=== PATIENT | female | born 1980 | race Hispanic/Latino ===

== ENCOUNTER 2016-08-10 20:13 | Emergency (ER) | payer MEDICAID ==
[~2016-08-10 20:13] MED LIST: PREN-100 PO
[2016-08-10 20:32] VITALS: BP 105/64; PULSE 75; RESP 20; O2SAT 99
--- NOTE | 2016-08-10 21:09 | ED.REPORT ---
HPI-URI / Cough / Cold Date of Service August 10, 2016 ED Provider: Dr. Krish Adan MD A 35 year old, female presents to the ED with flu-like symptoms that began 2 days ago. Associated symptoms include fever, chills, headache, sore throat and bilateral eye redness. Her symptoms have been persistent since onset. Patient is up to date on all of her vaccinations except the influenza vaccine. Nursing Notes Stated Complaint: POSS PINK EYE,FEVER,COLD Chief Complaint: FLU/Cold Symptoms Nursing Notes Reviewed: Yes Allergies: Coded Allergies: No Known Allergies (Verified , 05/08/14) Scheduled Vits #90/Iron Fum/FA ( Formula Tablet) 1 Each Tablet 1 EACH PO DAILY General Time Seen by MD: 21:09 Chief Complaint Fever Hx Obtained From: Patient Arrived By: Walk-in Onset Occurred: 2 days ago Symptom Duration: Since onset Location: : Pharynx Quality: Aching Severity: Current: Mild Severity: Maximum: Mild Associated with: Reports: Chills, Fever, Headache Pertinent Negative: Pt denies other symptoms Context: Immunization Status General: All up to date Recent Healthcare: No recent doctor visit, No recent hospitalization Past Medical History Past Medical History History of PPD positive, 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 Past Surgical History 2013 - LEEP done for CAMERON-3 with clear margins. Smoking History Unknown if Ever Smoker Social History Other Social History: Good social support, Local resident Ambulatory Status Independent Review of Systems Constitutional: Reports: Chills, Fever Eyes: Reports: Redness bilateral Ears / Nose / Throat: Reports: Sore throat Neurologic: Reports: Headache Complete sys rev & neg: except as marked. Physical Exam Initial Vital Signs Vital Signs (First) Date Time Temp Pulse Resp B/P Pulse Ox O2 Delivery O2 Flow Rate FiO2 08/10/16 20:32 36.4 75 20 105/64 99 Room Air Initial VS: Reviewed Neck: Supple, Non-tender, Full range of motion Cardiovascular: Regular rate & rhythm, Heart sounds normal, Intact distal pulses Extremities: Vascular intact, Neuro intact, No swelling, No tenderness Skin: Warm, Dry, No cyanosis Neurologic: Alert, Oriented, Nonfocal Psychiatric: Mood/affect normal, Behavior normal, Normal thought content General/Constitutional: Awake, Alert, No acute distress ENT: Atraumatic, Airway patent Left Ear / Mastoid: Positive: Tympanic membrane bulging, Tympanic membrane red ENT: Left TM Respiratory / Chest: Atraumatic, No respiratory distress Head / Eyes: Atraumatic, Normocephalic, PERRL Conjunctiva / Sclera: Positive: Injected left, Injected right Interpretation & Diagnostics Lab Results Interpretation Test 08/10/16 22:30 Hold Purple Top Tube Received (Received) Hold Blue Top Tube Received (Received) Hold Red Top Tube Received (Received) Hold [place] Top Tube Received (Received) Hold [place] Top Tube Received (Received) Point of Care Testing: Preg test pos - urine Antigen Antibody Test Interp Rapid influenza positive Re-Eval/Medical Decision Med Decision/Clinical Course Influenza swab is positive. She certainly has conjunctival injection so therefore topical erythromycin will be prescribed. Her left ear is infected. This may well be all related to the influenza however I think it is prudent to treat as this may be bacterial superinfection. Re-Evaluation/Progress : Time of Eval: 21:28 Patient Status: Condition improved Re-Evaluation/Progress Note: Patient is rechecked. She is informed of her results and diagnosis. All of the patient's questions are addressed. She understands and agrees with the intended treatment plan. Counseled Regarding: Diagnosis, Need for follow-up, When/why to return to ED Discharge & Departure Impression: Primary Impression: Influenza due to influenza A virus Additional Impressions: Conjunctivitis Conjunctivitis type: acute Acute conjunctivitis type: unspecified Laterality: bilateral Qualified Code: H10.33 - Unspecified acute conjunctivitis, bilateral Otitis Laterality: left Qualified Code: H66.92 - Otitis media, unspecified, left ear Disposition: Home Discharge Condition All VS Reviewed: Yes Condition: Improved Patient Instructions: Conjunctivitis (ED), Influenza (ED), Otitis Media (ED) Additional Instructions: Thank you for trusting us with your care this evening. Your emergency department results are indicative of pink eye, ear infections, and the flu. Take Augmentin twice daily for 10 days. Use Erythromycin ointment on the affected eye 4 times daily for 5 days. Take Tylenol as directed for pain. Avoid Aspirin containing products. Your symptoms should likely resolve within the next week or so. Follow-up with your primary care physician and DIRECTOR EMBALMER, call tomorrow to schedule an appointment. Please return to the emergency department for any new or worsening conditions. Tamiflu twice daily for 5 days. Jose Elias por confiar en nosotros con gupta atencin esta noche. Los resultados del Departamento de la emergencia son indicativos de conjuntivitis, infecciones del odo y la gripe. Marcella Augmentin dos veces al da kenneth 10 xavier. Use ungento de eritromicina en el shaji afectado 4 veces diariamente por 5 xavier. [place] Tylenol marco antonio se indica para el dolor. Evitar productos que contienen aspirina. Cecilia s ntomas probablemente deben resolver dentro de la semana prxima. Seguimiento con gupta mdico de atencin primaria y [employer], llamada maana para programar catia ryan. Por favor devuelva al servicio de urgencias para cualquier nuevas o que empeora las condiciones. Referrals: Johana Bronson MD (PCP) Scribe Attestation Portions of this note were transcribed by Christopher Taveras and Alvaro Bone. I, Dr. Adan personally performed the history, physical exam and medical decision- making; I reviewed and confirmed the accuracy of the information in the transcribed note. Signed by: Sandra Rizzo, 08/10/16 2200. Signed by: Sandra Back, 08/10/16 2241. copies to: Johana Bronson MD, Todd P DO August 10, 2016 21:09 CHRISTOPHER TAVERAS August 10, 2016 21:21 ALVARO BONE August 10, 2016 22:36
[2016-08-10] MEDS ORDERED: Amoxicillin-Clav 875-125 mg Tablet PO ONE (21:50)
[2016-08-10 23:02] VITALS: BP 94/52; PULSE 71; RESP 20; O2SAT 98
[2016-08-10 23:18] VITALS: BP 94/52; PULSE 71; RESP 20; O2SAT 98
[2016-08-11] MEDS ORDERED: _Erythromycin 0.5% Oph Oint 3.5 gm AFFECT_EYE SCH (08:30)
== END 2016-08-10 23:18 | disposition home or self-care (01) ==
LOC: SED 20:13
DX: O99.519 Diseases of the respiratory system complicating pregnancy, unspecified trimester (principal); J10.1 Influenza due to other identified influenza virus with other respiratory manifestations; H10.33 Unspecified acute conjunctivitis, bilateral; H66.92 Otitis media, unspecified, left ear; Z3A.00 Weeks of gestation of pregnancy not specified